=== PATIENT | female | born 1955 ===

== ENCOUNTER 2021-10-28 06:00 | Outpatient (RCR) | payer MEDICARE, BC, SELFPAY | END 2021-11-21 23:59 | disposition home or self-care (01) | LOC: GPT 06:00 | DX: G72.9 Myopathy, unspecified (principal) | CPT/HCPCS: 97110; 97116; 97162 ==

== ENCOUNTER 2021-11-22 06:00 | Outpatient (RCR) | payer MEDICARE, BC, SELFPAY | END 2021-12-22 23:59 | disposition home or self-care (01) | LOC: GPT 06:00 | DX: G72.9 Myopathy, unspecified (principal); U09.9 Post COVID-19 condition, unspecified | CPT/HCPCS: 97110; 97112; 97116; 97530 ==

== ENCOUNTER 2021-12-23 06:00 | Outpatient (RCR) | payer MEDICARE, BC, SELFPAY | END 2022-01-21 23:59 | disposition home or self-care (01) | LOC: GPT 06:00 | DX: G72.81 Critical illness myopathy (principal); U09.9 Post COVID-19 condition, unspecified | CPT/HCPCS: 97110; 97112; 97164; 97530 ==

== ENCOUNTER 2022-01-22 06:00 | Outpatient (RCR) | payer MEDICARE, BC, SELFPAY | END 2022-02-21 23:59 | disposition home or self-care (01) | LOC: GPT 06:00 | DX: G72.81 Critical illness myopathy (principal); U09.9 Post COVID-19 condition, unspecified | CPT/HCPCS: 97110; 97112; 97140; 97164 ==

== ENCOUNTER 2022-02-22 06:00 | Outpatient (RCR) | payer MEDICARE, BC, SELFPAY | END 2022-03-24 23:59 | disposition home or self-care (01) | LOC: GPT 06:00 | DX: G72.81 Critical illness myopathy (principal); U07.1 COVID-19 | CPT/HCPCS: 97110; 97112; 97535 ==

== ENCOUNTER 2022-03-25 06:00 | Outpatient (RCR) | payer MEDICARE, BC, SELFPAY | END 2022-04-23 23:59 | disposition home or self-care (01) | LOC: GPT 06:00 | DX: M62.81 Muscle weakness (generalized) (principal); R26.81 Unsteadiness on feet | CPT/HCPCS: 97110; 97112; 97164; 97530 ==

== ENCOUNTER 2023-07-13 06:00 | Outpatient (RCR) | payer MEDICARE, BC, SELFPAY | END 2023-07-24 23:59 | disposition home or self-care (01) | LOC: GPT 06:00 | PROVIDERS: Visit Provider Internal Medicine | DX: M51.36 Other intervertebral disc degeneration, lumbar region (principal) | CPT/HCPCS: 97110; 97112; 97140; 97162 ==

== ENCOUNTER 2023-07-25 06:00 | Outpatient (RCR) | payer MEDICARE, BC, SELFPAY | END 2023-08-24 23:59 | disposition home or self-care (01) | LOC: GPT 06:00 | PROVIDERS: Visit Provider Internal Medicine | DX: M47.896 Other spondylosis, lumbar region (principal) | CPT/HCPCS: 97110; 97112; 97140 ==

== ENCOUNTER 2023-08-25 06:00 | Outpatient (RCR) | payer MEDICARE, BC, SELFPAY | END 2023-09-22 23:59 | disposition home or self-care (01) | LOC: GPT 06:00 | PROVIDERS: Visit Provider Internal Medicine | DX: M47.896 Other spondylosis, lumbar region (principal) | CPT/HCPCS: 97110; 97164; 97530 ==

== ENCOUNTER 2023-09-23 06:00 | Outpatient (RCR) | payer MEDICARE, BC, SELFPAY | END 2023-10-23 23:59 | disposition home or self-care (01) | LOC: GPT 06:00 | PROVIDERS: Visit Provider Internal Medicine | DX: M47.896 Other spondylosis, lumbar region (principal) | CPT/HCPCS: 97110; 97140; 97164 ==

== ENCOUNTER 2023-10-24 06:00 | Outpatient (RCR) | payer MEDICARE, BC, SELFPAY | END 2023-11-22 23:59 | disposition home or self-care (01) | LOC: GPT 06:00 | PROVIDERS: Visit Provider Internal Medicine | DX: M51.36 Other intervertebral disc degeneration, lumbar region (principal) | CPT/HCPCS: 97110; 97112; 97140 ==

== ENCOUNTER 2023-11-23 06:00 | Outpatient (RCR) | payer MEDICARE, BC, SELFPAY | END 2023-12-23 23:59 | disposition home or self-care (01) | LOC: GPT 06:00 | PROVIDERS: Visit Provider Internal Medicine | DX: M51.36 Other intervertebral disc degeneration, lumbar region (principal) | CPT/HCPCS: 97110; 97140; 97530 ==